=== PATIENT | male | born 1965 | race Caucasian/White ===

== ENCOUNTER → 2024-12-23 07:47 | Outpatient (REF) | payer OTHER, SELFPAY | LOC: RCS 07:47 | PROVIDERS: ATTENDING PHYSICIAN Internal Medicine Cardiovascular Disease; FAMILY PHYSICIAN Internal Medicine | DX: I10 Essential (primary) hypertension (principal); I44.4 Left anterior fascicular block; R94.31 Abnormal electrocardiogram [ECG] [EKG] | CPT/HCPCS: 93306; Q9950 ==

== ENCOUNTER 2025-09-18 06:15 | Day surgery (SDC) | payer OTHER, SELFPAY ==
[2025-09-13 07:59] VITALS: BMI 33.1
[2025-09-13 08:52] LABS: Hematocrit 41.7 % (39.0-52.0); Hemoglobin 14.7 g/dL (13.0-18.0); Mean Corp Hgb Conc. 35.3 g/dL (33.0-37.0); Mean Corpuscular Volume 90.5 fL (80.0-94.0); Nucleated Red Blood Cells % 0 % (-); Platelet Count 301 10^3/uL (130-400); Red Cell Dist. Width 11.4 % (11.5-14.5)
[2025-09-13 09:19] LABS: ALT (SGPT) 30 U/L (0-50); AST (SGOT) 27 U/L (17-59); Albumin 4.5 g/dl (3.5-5.0); Alkaline Phosphatase 50 U/L (38-126); Blood Urea Nitrogen 15 mg/dl (9-20); Calcium 9.8 mg/dl (8.4-10.2); Carbon Dioxide 25 mmol/L (22-30); Chloride 105 mmol/L (98-107); Estimated Creatinine Clearance > 125 ml/min; Glucose 85 mg/dl (70-99); Potassium 4.6 mmol/L (3.5-5.1); Sodium 137 mmol/L (135-145); Total Protein 7.3 g/dl (6.3-8.2); eGFR > 60.00
[2025-09-18] VITALS (7 sets, daily range): BP systolic 73–124; BP diastolic 53–89; BMI 30.7
--- NOTE | 2025-09-18 07:23 | W.ICD.CONTRA ---
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
-
History of NV?: No
LV Function
Left ventricular function study result?: Ejection Fraction >/= 40%
ACEI/ARB/ARNI
Patient already on ACEI/ARB/ARNI: Yes
Beta-Olegario
Patient already on Beta Olegario: No
Beta Olegario Not Indicated: Left Ventricular EF >/= 40%
--- NOTE | 2025-09-18 13:00 | W.PN.UPDATE ---
Update Note
Progress Note Update
Pt seen post DC ICD implant. Left ACW w/aquacel dressing CDI, no ht/bleeding, mildly tender post procedure. Post EKG NSR 76, no acute changes. Post CXR w/stable lead position, no pneumothorax. Activity limitations reviewed w/pt, . Incision check
next week. Home later today if device site/tele remain stable.
[2025-09-18] MEDS: ANCEF 5 IV (13:44)
--- NOTE | 2025-09-18 14:41 | ITS.CL.ICD ---
Emergency Response Coordinator - ICD
Implantable Cardioverter Defibrillator
Procedure Report:
Date of Procedure: September 18, 2025.
Procedures: Dual chamber ICD implant.
Indication: Primary prevention ICD. 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 NYHA heart failure class I. QRS duration 100 ms without bundle branch block. History of nonsustained VT. No
history of prior NV. Life expectancy is greater than 1 year. Shared decision making was employed before the patient chose to proceed with ICD implantation. 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 Chantal Mcintosh, and myself. Initially I chose a single-chamber device. But in the holding area of the cardiac catheterization lab his heart rate was 60 bpm while awake talking to me
not on beta-daniel therapy. I thought that have putting in a single-chamber device could limit the ability to add and up-titrate beta-blockers or use antiarrhythmic medications in the future. ICD implantation is in accordance with the most recent
appropriate use criteria published by the ACC/AHA/Heart Rhythm Society.
Performing physician: Daniel Quintanilla MD, [facility].
Implants:
Pulse Generator: Medtronic; Model# [id number]; Serial# [id number].
Atrial Lead: Medtronic: Model# [id number]; Serial# [id number]..
Right Ventricular Lead: Medtronic; Model# [id number]; Serial# [id number].
Technique: A time out was performed. A 10 mL upper extremity venogram demonstrated patent left cephalic, axillary, and subclavian veins. The procedure site was identified. The patient was anesthetized by the anesthesia service. Preoperative
cefazolin was administered. The patient was prepped and draped in the usual fashion. Local anesthetic was applied to the left prepectoral subcutaneous tissue. A 3 inch incision was made along the left deltopectoral groove. Dissection was carried to
the fascia. The deltopectoral fat pad was not found. Using a micropuncture needle the left axillary vein was accessed with two separate percutaneous. A subcutaneous pocket was created with blunt dissection and a bit of Bovie cautery. The leads were
introduced with hemostatic peel away introducer sheaths. The ventricular lead was placed at the right ventricular apical septum. The mid septum was mapped extensively and very small R waves were found. This can be consistent with right ventricular
involvement and the patient's cardiomyopathy. The apex was also mapped and acceptable location was finally found in the apical septum. The ventricular lead was secured to the pectoralis muscle and fascia with two 0-silk sutures. The atrial lead was
then placed in the right atrial appendage. The atrial lead was secured to the pectoralis muscle and fascia with two 0-silk sutures. Hemostasis was excellent. The leads were appropriately attached to the device. The pocket was irrigated with
antibiotic solution. The device and leads were placed in the pocket. The device was secured to the pectoralis muscle and fascia with 0 silk suture to prevent migration of the device. Atrial fibrillation that developed during atrial lead insertion.
Atrial fibrillation was easily detected by the atrial lead. Atrial fibrillation persisted for about 10 minutes when we are ready to close the incision. A 150 J synchronized external biphasic shock restored sinus rhythm. The incision was then closed
in three layers with absorbable suture. Steri-strips and a a silver impregnated dressing were placed. Estimated blood loss was 5 ml. There were no complications. Fluoroscopy DAP 2.74 GyCM2. The device was then interrogated after skin closure.
System Analysis:
RA lead: P: 2.3 mV; Threshold: 1 V @ 0.4 ms; Impedance: 513 ohms.
RV lead: R: 6.4 mV; Threshold: 0.5 V @ 0.4 ms; Impedance: 646 ohms. HVB 62 ohms
Final Programming: Tachy: VT/VF:188 bpm; Franco: MVP (AAIR <=> DDDR 50-130 bpm) with a sleep rate of 40 bpm..
Conclusion: Uncomplicated Medtronic dual chamber ICD implant. The ICD system is MRI safe/conditional.
Recommendation: Routine post ICD care.
cc: Tony Becerra MD, Oniel Burciaga MD,and Chantal Mcintosh MD.
== END 2025-09-18 14:05 | disposition home or self-care (01) ==
LOC: CATH 06:15
PROVIDERS: ATTENDING PHYSICIAN Internal Medicine Cardiovascular Disease; FAMILY PHYSICIAN Nurse Practitioner Family; OTHER PHYSICIAN Internal Medicine Cardiovascular Disease
DX: I42.8 Other cardiomyopathies (principal); I47.20 Ventricular tachycardia, unspecified; Z79.82 Long term (current) use of aspirin; Z79.85 Long-term (current) use of injectable non-insulin antidiabetic drugs; Z79.899 Other long term (current) drug therapy
CPT/HCPCS: 33249; 36415; 71045; 80053; 85025; 93005; C1721; C1777; C1898; Q9967